=== PATIENT | female | born 1965 | race Caucasian/White ===

== ENCOUNTER 2018-08-28 19:29 | Emergency (ER) | payer SELFPAY ==
[~2018-08-28] VITALS: Ht 160 cm; Wt 105.2 kg
[2018-08-28 20:00] VITALS: Ht 160 cm; Wt 105.2 kg
[2018-08-28 22:34] VITALS: BP 133/83
== END 2018-08-28 22:34 | disposition home or self-care (01) ==
LOC: ED 19:29
DX: I80.9 Phlebitis and thrombophlebitis of unspecified site (principal)